=== PATIENT | male | born 1970 | race African-American/Black ===

== ENCOUNTER 2019-11-02 22:27 | Emergency (ER) | payer MEDICARE, OTHER ==
[~2019-11-02] VITALS: Ht 177.8 cm; Wt 82.3 kg
[~2019-11-02 22:27] MED LIST: LEVO50 PO; MULT-1239 PO; NALT50TA PO; OLAN10TA22 PO
[2019-11-02 23:21] LABS: BASOPHILS % (AUTO) 0.9 % (0.0-2.0); EOSINOPHILS % (AUTO) 3.7 % (1.0-6.0); HEMATOCRIT 34.6 % (41-53); HEMOGLOBIN 11.1 g/dL (13.5-17.5); LYMPHOCYTES # (AUTO) 1.3 K/uL (1.0-4.8); MEAN CORPUSCULAR VOLUME 78 fL (80-100); MONOCYTES # (AUTO) 0.3 K/uL (0.1-1.0); MONOCYTES % (AUTO) 8.7 % (2.0-9.0); NEUTROPHILS # (AUTO) 2.1 K/uL (1.8-7.7); NEUTROPHILS % (AUTO) 53.7 % (40.0-70.0); PLATELET COUNT (AUTO) 184 K/uL (150-450); RED BLOOD CELL COUNT(AUTO) 4.44 MIL/uL (4.50-5.90); RED CELL DISTRIBUTION WIDTH 15.6 % (11.5-14.5)
[2019-11-02 23:30] LABS: ANION GAP 2 mmol/L (8-16); CALCIUM, TOTAL 9.1 mg/dL (8.8-10.5); CARBON DIOXIDE 33 mmol/L (22-29); CHLORIDE 100 mmol/L (98-107); CREATININE 1.66 mg/dL (0.60-1.30); GLOMERULAR FILTR. RATE CALC 53 mL/min (>60); GLUCOSE,RANDOM 82 mg/dL (70-110); POTASSIUM 4.2 mmol/L (3.5-5.1); SODIUM SERUM 135 mmol/L (136-145); UREA NITROGEN, BLOOD 20 mg/dL (7-18)
[2019-11-02 23:36] LABS: ALANINE AMINOTRANSFERASE 24 U/L (12-78); ALBUMIN 3.4 g/dL (3.4-5.0); ALKALINE PHOSPHATASE 47 U/L (46-116); ASPARTATE AMINOTRANSFERASE 37 U/L (15-37); BILIRUBIN,TOTAL 0.4 mg/dL (0.1-1.0); TOTAL PROTEIN, SERUM 7.4 g/dL (6.4-8.2)
[2019-11-03 00:50] VITALS: BP 114/70
== END 2019-11-03 02:40 | disposition home or self-care (01) ==
LOC: EMS 22:27
DX: F20.0 Paranoid schizophrenia (principal); D64.9 Anemia, unspecified; N28.9 Disorder of kidney and ureter, unspecified; F32.9 Major depressive disorder, single episode, unspecified
CPT/HCPCS: 36415; 80053; 85025; 99285; G0480

== ENCOUNTER 2019-11-06 12:31 | Inpatient (IN) | payer MEDICARE, MEDICAID ==
[~2019-11-06] VITALS: Ht 175.3 cm; Wt 79.4 kg
[2019-11-06 13:02] LABS: BASOPHILS % (AUTO) 0.9 % (0.0-2.0); EOSINOPHILS % (AUTO) 3.1 % (1.0-6.0); HEMATOCRIT 36.4 % (41-53); HEMOGLOBIN 12.2 g/dL (13.5-17.5); LYMPHOCYTES # (AUTO) 1.2 K/uL (1.0-4.8); LYMPHOCYTES % (AUTO) 31.1 % (22.0-44.0); MEAN CORPUSCULAR HEMOGLOBIN 25.9 pg (26.0-34.0); MEAN CORPUSCULAR HGB CONC 33.5 G/dL (31.0-37.0); MEAN CORPUSCULAR VOLUME 77 fL (80-100); MONOCYTES # (AUTO) 0.4 K/uL (0.1-1.0); MONOCYTES % (AUTO) 9.9 % (2.0-9.0); PLATELET COUNT (AUTO) 226 K/uL (150-450); RED CELL DISTRIBUTION WIDTH 15.4 % (11.5-14.5)
[2019-11-06 13:13] LABS: ANION GAP 3 mmol/L (8-16); CALCIUM, TOTAL 9.3 mg/dL (8.8-10.5); CARBON DIOXIDE 33 mmol/L (22-29); CHLORIDE 97 mmol/L (98-107); CREATININE 1.76 mg/dL (0.60-1.30); GLOMERULAR FILTR. RATE CALC 50 mL/min (>60); GLUCOSE,RANDOM 112 mg/dL (70-110); POTASSIUM 3.7 mmol/L (3.5-5.1); SODIUM SERUM 133 mmol/L (136-145); UREA NITROGEN, BLOOD 24 mg/dL (7-18)
[2019-11-06 13:17] LABS: ALANINE AMINOTRANSFERASE 27 U/L (12-78); ALKALINE PHOSPHATASE 48 U/L (46-116); ASPARTATE AMINOTRANSFERASE 50 U/L (15-37); BILIRUBIN,TOTAL 0.8 mg/dL (0.1-1.0); TOTAL PROTEIN, SERUM 8.3 g/dL (6.4-8.2)
[2019-11-06 14:57] LABS: AMPHET/METH SCREEN,URINE NEGATIVE (NEGATIVE); BARBITURATE SCREEN, URINE NEGATIVE (NEGATIVE); BENZODIAZEPINES SCREEN,URINE NEGATIVE (NEGATIVE); CANNABINOID SCREEN,URINE NEGATIVE (NEGATIVE); COCAINE SCREEN,URINE NEGATIVE (NEGATIVE); METHADONE SCREEN, URINE NEGATIVE (NEGATIVE); OPIATE SCREEN,URINE NEGATIVE (NEGATIVE)
[2019-11-06 15:00] LABS: PHENCYCLIDINE SCREEN,URINE NEGATIVE (NEGATIVE)
[2019-11-06] MEDS ORDERED: ACETAMINOPHEN 325 MG TABLET PO PRN (16:15)
[2019-11-06] MEDS ORDERED: PROMETHAZINE HCL 25 MG TABLET PO PRN (16:15)
[2019-11-06] MEDS ORDERED: GuaiFENesin/D-METHORPHAN [SUGAR-FREE] 200-20MG/10 ML SYRUP UDCUP PO PRN (16:15)
[2019-11-06] MEDS ORDERED: LOPERAMIDE HCL 2 MG CAPSULE PO PRN (16:15)
[2019-11-06] MEDS ORDERED: MAG HYDROX/AL HYDROX/SIMETH ES 30 ML SUSPENSION UDCUP PO PRN (16:15)
[2019-11-06] MEDS ORDERED: LORazepam 2 MG TABLET PO PRN (16:15)
[2019-11-06] MEDS ORDERED: MAGNESIUM HYDROXIDE SUSPENSION 30 ML UDCUP PO PRN (16:15)
[2019-11-06] MEDS ORDERED: ZOLPIDEM TARTRATE 10 MG TABLET PO PRN (16:15)
[2019-11-06] MEDS ORDERED: HydrOXYzine PAMOATE 50 MG CAPSULE PO PRN (16:15)
[2019-11-06] MEDS ORDERED: OLANZapine 5 MG RAPDIS TABLET PO PRN (16:15)
[2019-11-06] MEDS: THIAMINE 100 MG TABLET PO SCH (18:11)
[2019-11-06 22:24] VITALS: BP 126/72
[2019-11-07 06:43] VITALS: BP 113/68
[2019-11-07] MEDS: FOLIC ACID 1 MG TABLET PO SCH (08:49)
[2019-11-07] MEDS: FLUoxetine HCL 20 MG CAPSULE PO SCH (08:49)
[2019-11-07] MEDS: MULTIVITAMINS WITH MINERALS, THERAPEUTIC TABLET PO SCH (08:49)
[2019-11-07] MEDS: OLANZapine 5 MG RAPDIS TABLET PO SCH (08:50)
[2019-11-07] MEDS: THIAMINE 100 MG TABLET PO SCH ×2 (08:50→18:44)
[2019-11-07] MEDS: NALTREXONE HCL 50 MG TABLET PO SCH (09:19)
[2019-11-07 11:52] VITALS: BP 117/76
[2019-11-07 17:21] VITALS: BP 109/61
[2019-11-08 03:08] VITALS: BP 96/64
[2019-11-08 08:19] VITALS: BP 104/62
[2019-11-08] MEDS: THIAMINE 100 MG TABLET PO SCH ×2 (08:22→16:33)
[2019-11-08] MEDS: FOLIC ACID 1 MG TABLET PO SCH (08:22)
[2019-11-08] MEDS: NALTREXONE HCL 50 MG TABLET PO SCH (08:22)
[2019-11-08] MEDS: MULTIVITAMINS WITH MINERALS, THERAPEUTIC TABLET PO SCH (08:22)
[2019-11-08] MEDS: OLANZapine 5 MG RAPDIS TABLET PO SCH (08:25)
[2019-11-08] MEDS: FLUoxetine HCL 20 MG CAPSULE PO SCH (08:25)
[2019-11-08 16:24] VITALS: BP 106/64
[2019-11-08] MEDS: MIRTAZAPINE 15 MG TABLET PO SCH (20:34)
[2019-11-09 04:13] VITALS: BP 101/68
[2019-11-09 08:27] VITALS: BP 123/71
[2019-11-09 08:28] LABS: FREE T4 (FREE THYROXINE) 0.9 ng/dL (0.76-1.46); THYROID STIMULATING HORMONE 5.87 uIU/mL (0.36-3.74)
[2019-11-09] MEDS: THIAMINE 100 MG TABLET PO SCH ×2 (08:42→16:39)
[2019-11-09] MEDS: FLUoxetine HCL 20 MG CAPSULE PO SCH (08:42)
[2019-11-09] MEDS: FOLIC ACID 1 MG TABLET PO SCH (08:42)
[2019-11-09] MEDS: NALTREXONE HCL 50 MG TABLET PO SCH (08:42)
[2019-11-09] MEDS: OLANZapine 10 MG RAPDIS TABLET PO SCH (08:42)
[2019-11-09] MEDS: MULTIVITAMINS WITH MINERALS, THERAPEUTIC TABLET PO SCH (08:42)
[2019-11-09] MEDS ORDERED: MIRT-89 PO (15:06)
[2019-11-09] MEDS ORDERED: OLAN10TA22 PO (15:06)
[2019-11-09] MEDS ORDERED: FLUO-191 PO (15:06)
[2019-11-09] MEDS ORDERED: NALT50TA PO (15:06)
[2019-11-09 16:19] VITALS: BP 105/66
[2019-11-09] MEDS: MIRTAZAPINE 15 MG TABLET PO SCH (20:42)
[2019-11-10 04:28] VITALS: BP 111/68
[2019-11-10 07:57] LABS: FREE T4 (FREE THYROXINE) 0.88 ng/dL (0.76-1.46); THYROID STIMULATING HORMONE 6.32 uIU/mL (0.36-3.74)
[2019-11-10] MEDS: THIAMINE 100 MG TABLET PO SCH ×2 (08:35→16:29)
[2019-11-10] MEDS: FLUoxetine HCL 20 MG CAPSULE PO SCH (08:35)
[2019-11-10 08:36] VITALS: BP 102/66
[2019-11-10] MEDS: NALTREXONE HCL 50 MG TABLET PO SCH (08:36)
[2019-11-10] MEDS: MULTIVITAMINS WITH MINERALS, THERAPEUTIC TABLET PO SCH (08:36)
[2019-11-10] MEDS: FOLIC ACID 1 MG TABLET PO SCH (08:36)
[2019-11-10] MEDS: OLANZapine 10 MG RAPDIS TABLET PO SCH (08:36)
[2019-11-10 16:34] VITALS: BP 101/60
== END 2019-11-10 17:35 | disposition home or self-care (01) | DRG 885 ==
LOC: EMS 12:32 → B2S 16:07 → UNDOADMIN 17:51 → B2S 20:15 → B2X 20:15
PROVIDERS: ADMIT Psychiatry & Neurology Psychiatry; ATTEND Psychiatry & Neurology Psychiatry
DX: F20.0 Paranoid schizophrenia (principal); F17.210 Nicotine dependence, cigarettes, uncomplicated; D49.7 Neoplasm of unspecified behavior of endocrine glands and other parts of nervous system; E03.9 Hypothyroidism, unspecified; N28.9 Disorder of kidney and ureter, unspecified; Z59.0 Homelessness; Z79.899 Other long term (current) drug therapy; Z91.14 Patient's other noncompliance with medication regimen; Z91.19 Patient's noncompliance with other medical treatment and regimen
CPT/HCPCS: 84439; 84443; 84481; G0480

== ENCOUNTER 2020-05-11 16:05 | Inpatient (IN) | payer OTHER, MEDICAID ==
[~2020-05-11] VITALS: Ht 177.8 cm; Wt 77.6 kg
[~2020-05-11 16:05] MED LIST changes: +FLUO-191 PO; -LEVO50 PO; +MIRT-89 PO; -MULT-1239 PO
[2020-05-11] MEDS ORDERED: DOCU-275 PO (18:17)
[2020-05-11] MEDS ORDERED: LEVO50 PO (18:18)
[2020-05-11] MEDS ORDERED: HALOPERIDOL 5 MG TABLET PO PRN (18:45)
[2020-05-11] MEDS ORDERED: LORazepam 2 MG TABLET PO PRN (18:45)
[2020-05-11] MEDS ORDERED: ZOLPIDEM TARTRATE 10 MG TABLET PO PRN (18:45)
[2020-05-11 19:15] VITALS: BP 103/64
[2020-05-11] MEDS: MIRTAZAPINE 15 MG TABLET PO SCH (20:59)
[2020-05-11] MEDS: OLANZapine 10 MG TABLET PO SCH (21:00)
[2020-05-11 21:10] LABS: GLUCOMETER DEV NAME(LOC) 3E.I 2; GLUCOSE,POINT OF CARE 78 MG/DL (70-110)
[2020-05-11] MEDS ORDERED: IBUPROFEN 400 MG TABLET PO PRN (21:15)
[2020-05-12 06:38] LABS: GLUCOMETER DEV NAME(LOC) 3E.I 2; GLUCOSE,POINT OF CARE 70 MG/DL (70-110)
[2020-05-12] MEDS: LEVOTHYROXINE SODIUM 50 MCG TABLET PO SCH (06:57)
[2020-05-12] MEDS ORDERED: GuaiFENesin/D-METHORPHAN [SUGAR-FREE] 200-20MG/10 ML SYRUP UDCUP PO PRN (08:30)
[2020-05-12] MEDS ORDERED: MAGNESIUM HYDROXIDE SUSPENSION 30 ML UDCUP PO PRN (08:30)
[2020-05-12] MEDS ORDERED: ACETAMINOPHEN 325 MG TABLET PO PRN (08:30)
[2020-05-12] MEDS ORDERED: NICOTINE 14 MG/24 HOUR PATCH TD PRN (08:30)
[2020-05-12] MEDS ORDERED: ONDANSETRON HCL 4 MG TABLET PO PRN (08:30)
[2020-05-12] MEDS ORDERED: ALBUTEROL SULFATE HFA 90 MCG/PUFF 8 GM INHALER IH PRN (08:30)
[2020-05-12] MEDS ORDERED: DOCUSATE SODIUM 100 MG CAPSULE PO PRN (08:30)
[2020-05-12] MEDS ORDERED: PETROLATUM,WHITE 28 GM JELLY TP PRN (08:30)
[2020-05-12] MEDS ORDERED: LOPERAMIDE HCL 2 MG CAPSULE PO PRN (08:30)
[2020-05-12] MEDS ORDERED: MAG HYDROX/AL HYDROX/SIMETH ES 30 ML SUSPENSION UDCUP PO PRN (08:30)
[2020-05-12] MEDS ORDERED: CloNIDine HCL 0.1 MG TABLET PO PRN (08:30)
[2020-05-12 13:21] LABS: GLUCOMETER DEV NAME(LOC) 3E.I 2; GLUCOSE,POINT OF CARE 59 MG/DL (70-110)
[2020-05-12 14:00] LABS: GLUCOMETER DEV NAME(LOC) 3E.I 2; GLUCOSE,POINT OF CARE 70 MG/DL (70-110)
[2020-05-12 15:05] VITALS: BP 99/63
[2020-05-12] MEDS: IBUPROFEN 400 MG TABLET PO PRN (15:07)
[2020-05-12 16:36] VITALS: BP 89/58
[2020-05-12 16:36] LABS: GLUCOMETER DEV NAME(LOC) 3E.I 2; GLUCOSE,POINT OF CARE 72 MG/DL (70-110)
[2020-05-12 20:25] LABS: GLUCOMETER DEV NAME(LOC) 3E.I 2; GLUCOSE,POINT OF CARE 106 MG/DL (70-110)
[2020-05-12] MEDS: OLANZapine 10 MG TABLET PO SCH (20:51)
[2020-05-12] MEDS: MIRTAZAPINE 15 MG TABLET PO SCH (20:51)
[2020-05-13 06:48] LABS: GLUCOMETER DEV NAME(LOC) 3E.I 2; GLUCOSE,POINT OF CARE 68 MG/DL (70-110)
[2020-05-13 06:57] LABS: BASOPHILS % (AUTO) 1.1 % (0.0-2.0); EOSINOPHILS % (AUTO) 4.6 % (1.0-6.0); HEMATOCRIT 30.2 % (41-53); HEMOGLOBIN 9.9 g/dL (13.5-17.5); LYMPHOCYTES # (AUTO) 1.4 K/uL (1.0-4.8); LYMPHOCYTES % (AUTO) 48.7 % (22.0-44.0); MEAN CORPUSCULAR HGB CONC 32.8 G/dL (31.0-37.0); MEAN CORPUSCULAR VOLUME 82 fL (80-100); MONOCYTES # (AUTO) 0.3 K/uL (0.1-1.0); MONOCYTES % (AUTO) 10.2 % (2.0-9.0); NEUTROPHILS % (AUTO) 35.4 % (40.0-70.0); PLATELET COUNT (AUTO) 135 K/uL (150-450); RED BLOOD CELL COUNT(AUTO) 3.67 MIL/uL (4.50-5.90); RED CELL DISTRIBUTION WIDTH 14.9 % (11.5-14.5)
[2020-05-13] MEDS: LEVOTHYROXINE SODIUM 50 MCG TABLET PO SCH (06:58)
[2020-05-13] MEDS ORDERED: LEVOTHYROXINE SODIUM 50 MCG TABLET PO SCH (07:00)
[2020-05-13 07:14] LABS: GLUCOMETER DEV NAME(LOC) 3E.I 2; GLUCOSE,POINT OF CARE 118 MG/DL (70-110)
[2020-05-13 08:04] LABS: ALBUMIN 2.9 g/dL (3.4-5.0); BILIRUBIN,TOTAL 0.3 mg/dL (0.1-1.0); CALCIUM, TOTAL 8.6 mg/dL (8.8-10.5); CREATININE 1.57 mg/dL (0.60-1.30); FREE T4 (FREE THYROXINE) 0.88 ng/dL (0.76-1.46); POTASSIUM 4.9 mmol/L (3.5-5.1); THYROID STIMULATING HORMONE 5.15 uIU/mL (0.36-3.74)
[2020-05-13 08:39] VITALS: BP 94/54
[2020-05-13 11:50] LABS: GLUCOMETER DEV NAME(LOC) 3E.I 2; GLUCOSE,POINT OF CARE 90 MG/DL (70-110)
[2020-05-13 16:00] VITALS: BP 102/57
[2020-05-13] MEDS: IBUPROFEN 400 MG TABLET PO PRN (16:00)
[2020-05-13] MEDS: OLANZapine 10 MG TABLET PO SCH (20:06)
[2020-05-13] MEDS: MIRTAZAPINE 15 MG TABLET PO SCH (20:06)
[2020-05-13 20:59] LABS: GLUCOMETER DEV NAME(LOC) 3E.I 2; GLUCOSE,POINT OF CARE 71 MG/DL (70-110)
[2020-05-14] MEDS: LEVOTHYROXINE SODIUM 50 MCG TABLET PO SCH (06:36)
[2020-05-14 06:40] LABS: GLUCOMETER DEV NAME(LOC) 3E.I 2; GLUCOSE,POINT OF CARE 79 MG/DL (70-110)
[2020-05-14 08:35] VITALS: BP 96/65
[2020-05-14 12:45] LABS: GLUCOMETER DEV NAME(LOC) 3E.I 2; GLUCOSE,POINT OF CARE 95 MG/DL (70-110)
[2020-05-14 16:15] VITALS: BP 108/60
[2020-05-14 17:04] LABS: GLUCOMETER DEV NAME(LOC) 3E.I 2; GLUCOSE,POINT OF CARE 106 MG/DL (70-110)
[2020-05-14] MEDS: OLANZapine 10 MG TABLET PO SCH (20:24)
[2020-05-14] MEDS: MIRTAZAPINE 15 MG TABLET PO SCH (20:24)
[2020-05-14 20:35] LABS: GLUCOMETER DEV NAME(LOC) 3E.I 2; GLUCOSE,POINT OF CARE 95 MG/DL (70-110)
[2020-05-15] MEDS: LEVOTHYROXINE SODIUM 50 MCG TABLET PO SCH (06:44)
[2020-05-15 06:45] VITALS: BP 92/62
[2020-05-15] MEDS: IBUPROFEN 400 MG TABLET PO PRN (06:57)
[2020-05-15 07:39] LABS: GLUCOMETER DEV NAME(LOC) 3E.I 2; GLUCOSE,POINT OF CARE 60 MG/DL (70-110)
[2020-05-15 07:39] LABS: GLUCOMETER DEV NAME(LOC) 3E.I 2; GLUCOSE,POINT OF CARE 84 MG/DL (70-110)
[2020-05-15 08:10] VITALS: BP 107/66
[2020-05-15 11:04] LABS: COVID AG,FIA SOURCE NASOPHARYNGEAL
[2020-05-15] MEDS ORDERED: MIRT-89 PO (11:04)
[2020-05-15] MEDS ORDERED: OLAN10TA3 PO (11:04)
[2020-05-15 16:10] VITALS: BP 98/79
[2020-05-15 16:34] LABS: GLUCOMETER DEV NAME(LOC) 3E.I 2; GLUCOSE,POINT OF CARE 80 MG/DL (70-110)
== END 2020-05-15 17:55 | disposition home or self-care (01) | DRG 885 ==
LOC: 3EI 19:15
DX: F25.1 Schizoaffective disorder, depressive type (principal); N17.9 Acute kidney failure, unspecified; R45.851 Suicidal ideations; F41.9 Anxiety disorder, unspecified; E03.9 Hypothyroidism, unspecified; D64.9 Anemia, unspecified; D72.819 Decreased white blood cell count, unspecified; E16.2 Hypoglycemia, unspecified; Z20.822 Contact with and (suspected) exposure to COVID-19
CPT/HCPCS: 84439; 84443; 87426

== ENCOUNTER 2021-04-18 13:04 | Inpatient (IN) | payer MEDICARE, MEDICAID ==
[~2021-04-18] VITALS: Ht 180.3 cm; Wt 181.6 kg
[~2021-04-18 13:04] MED LIST changes: -FLUO-191 PO; +LEVO50 PO; -NALT50TA PO; -OLAN10TA22 PO; +OLAN10TA74 PO
[2021-04-18] MEDS ORDERED: DiphenhydrAMINE HCL 50 MG/ML VIAL IM ONE (13:45)
[2021-04-18] MEDS ORDERED: HALOPERIDOL LACTATE 5 MG/ML VIAL IM ONE (13:45)
[2021-04-18] MEDS ORDERED: SODIUM CHLORIDE 0.9% 1,000 ML IV ONE ×2 (14:15→19:15)
[2021-04-18 16:25] LABS: BASOPHILS % (AUTO) 0.3 % (0.0-2.0); EOSINOPHILS % (AUTO) 0 % (1.0-6.0); HEMATOCRIT 37.8 % (41-53); HEMOGLOBIN 12.6 g/dL (13.5-17.5); LYMPHOCYTES # (AUTO) 0.8 K/uL (1.0-4.8); LYMPHOCYTES % (AUTO) 11.7 % (22.0-44.0); MEAN CORPUSCULAR HEMOGLOBIN 26.2 pg (26.0-34.0); MEAN CORPUSCULAR HGB CONC 33.4 G/dL (31.0-37.0); MEAN CORPUSCULAR VOLUME 78 fL (80-100); MONOCYTES % (AUTO) 16.2 % (2.0-9.0); NEUTROPHILS # (AUTO) 4.6 K/uL (1.8-7.7); NEUTROPHILS % (AUTO) 71.8 % (40.0-70.0); PLATELET COUNT (AUTO) 167 K/uL (150-450); RED BLOOD CELL COUNT(AUTO) 4.82 MIL/uL (4.50-5.90); RED CELL DISTRIBUTION WIDTH 16.8 % (11.5-14.5)
[2021-04-18 16:36] LABS: INR 1.1 (0.9-1.1)
[2021-04-18 17:10] LABS: COVID AG,FIA SOURCE NASOPHARYNGEAL
[2021-04-18 17:16] LABS: AMMONIA 19 umol/L (11-32)
[2021-04-18 18:05] LABS: ALANINE AMINOTRANSFERASE 66 U/L (12-78); ALBUMIN 3.5 g/dL (3.4-5.0); ALKALINE PHOSPHATASE 62 U/L (46-116); ANION GAP 10 mmol/L (8-16); ASPARTATE AMINOTRANSFERASE 184 U/L (15-37); BILIRUBIN,TOTAL 0.7 mg/dL (0.1-1.0); CALCIUM, TOTAL 8.8 mg/dL (8.8-10.5); CARBON DIOXIDE 24 mmol/L (22-29); CHLORIDE 98 mmol/L (98-107); CREATININE 4.52 mg/dL (0.60-1.30); FREE T4 (FREE THYROXINE) 0.73 ng/dL (0.76-1.46); GLOMERULAR FILTR. RATE CALC 11 mL/min (>60); GLUCOSE,RANDOM 100 mg/dL (70-110); SODIUM SERUM 132 mmol/L (136-145); THYROID STIMULATING HORMONE 5.03 uIU/mL (0.36-3.74); UREA NITROGEN, BLOOD 34 mg/dL (7-18)
[2021-04-18 18:13] LABS: CREATINE KINASE, TOTAL ONLY 4593 U/L (39-308); POTASSIUM 6.2 mmol/L (3.5-5.1)
[2021-04-18] MEDS ORDERED: DEXTROSE 50%-WATER 25 GM/50 ML SYRINGE IVP ONE (18:15)
[2021-04-18] MEDS ORDERED: INSULIN REGULAR, HUMAN 100 UNITS/ML IVP ONE (18:15)
[2021-04-18] MEDS ORDERED: CALCIUM GLUCONATE 1,000 MG in DEXTROSE 5%-WATER 50 ML IV ONE (18:15)
[2021-04-18] MEDS ORDERED: LORazepam 2 MG/ML VIAL IM ONE (18:15)
[2021-04-18] MEDS ORDERED: ALBUTEROL SULFATE 5 MG/ML 20 ML NEB SOLN [BULK] NEB ONE (18:15)
[2021-04-18] MEDS ORDERED: ZOLPIDEM TARTRATE 5 MG TABLET PO PRN (20:15)
[2021-04-18] MEDS ORDERED: HYDROCODONE/ACETAMINOPHEN 5-325 MG TABLET PO PRN (20:15)
[2021-04-18] MEDS ORDERED: MORPHINE SULFATE 2 MG/ML SYRINGE IVP PRN (20:15)
[2021-04-18] MEDS ORDERED: ONDANSETRON HCL 4 MG/2 ML VIAL IVP PRN (20:15)
[2021-04-18] MEDS ORDERED: ACETAMINOPHEN 325 MG TABLET PO PRN (20:15)
[2021-04-18] MEDS ORDERED: BISACODYL 10 MG RECTAL RECTAL SUPPOSITORY PR PRN (20:15)
[2021-04-18] MEDS ORDERED: MAGNESIUM HYDROXIDE SUSPENSION 30 ML UDCUP PO PRN (20:15)
[2021-04-18 20:49] LABS: APPEARANCE,URINE CLEAR (CLEAR); BILIRUBIN,URINE NEGATIVE (NEGATIVE); GLUCOSE, URINE (UA) NEGATIVE (NEGATIVE); KETONES,URINE NEGATIVE (NEGATIVE); LEUKOCYTE ESTERASE ,URINE NEGATIVE (NEGATIVE); NITRATE,URINE NEGATIVE (NEGATIVE); OCCULT BLOOD,URINE LARGE (NEGATIVE); PROTEIN,URINE SEE CONFIRM (NEGATIVE); UROBILINOGEN,URINE 0.2 mg/dL (<=1.0)
[2021-04-18 21:20] LABS: CALCIUM, TOTAL 8.4 mg/dL (8.8-10.5); CREATININE 3.72 mg/dL (0.60-1.30); POTASSIUM 4.5 mmol/L (3.5-5.1)
[2021-04-18] MEDS: DOCUSATE SODIUM 100 MG CAPSULE PO SCH (21:24)
[2021-04-18] MEDS: SODIUM CHLORIDE 0.9% 1,000 ML IV SCH (21:24)
[2021-04-18] MEDS ORDERED: ACETAMINOPHEN 1000 MG/ISO-OSM 100 ML IV ONE (21:30)
[2021-04-18] MEDS ORDERED: AZITHROMYCIN 500 MG/NS 250 ML IV ONE (21:30)
[2021-04-18] MEDS ORDERED: VANCOMYCIN HCL 1 GM/D5% WATER 200 ML IV ONE (21:30)
[2021-04-18] MEDS ORDERED: PIPERACILLIN/TAZO 3.375 GM/D5W 50 ML IV ONE (21:30)
[2021-04-18 21:33] LABS: SULFOSALICYLIC ACID,URINE 1+ (Negative)
[2021-04-18 21:34] LABS: BACTERIA,URINE Moderate /HPF (None Seen); RBC,URINE 0-2 /HPF (0-2)
[2021-04-18 21:49] LABS: AMPHET/METH SCREEN,URINE NEGATIVE (NEGATIVE); BARBITURATE SCREEN, URINE NEGATIVE (NEGATIVE); BENZODIAZEPINES SCREEN,URINE NEGATIVE (NEGATIVE); CANNABINOID SCREEN,URINE NEGATIVE (NEGATIVE); COCAINE SCREEN,URINE NEGATIVE (NEGATIVE); METHADONE SCREEN, URINE NEGATIVE (NEGATIVE); OPIATE SCREEN,URINE NEGATIVE (NEGATIVE)
[2021-04-18 21:51] LABS: PHENCYCLIDINE SCREEN,URINE NEGATIVE (NEGATIVE)
[2021-04-19] VITALS (8 sets, daily range): BP systolic 91–132; BP diastolic 48–77
[2021-04-19] MEDS: HEPARIN SODIUM,PORCINE 5,000 UNITS/ML VIAL SQ SCH ×4 (00:14→23:43)
[2021-04-19 00:26] LABS: LACTIC ACID 3.1 mmol/L (0.4-2.0)
[2021-04-19] MEDS: DOCUSATE SODIUM 100 MG CAPSULE PO SCH ×2 (09:00→21:00)
[2021-04-19] MEDS: PANTOPRAZOLE SODIUM 40 MG DR TABLET PO SCH (09:00)
[2021-04-19] MEDS ORDERED: SODIUM CHLORIDE 0.9% 1,000 ML IV ONE (11:00)
[2021-04-19] MEDS ORDERED: *CLINICAL-LEVOFLOXACIN ORAL DOSING CLINICAL ONE (11:00)
[2021-04-19] MEDS: SODIUM CHLORIDE 0.9% 1,000 ML IV SCH (14:35)
[2021-04-19] MEDS: LEVOFLOXACIN 750 MG/D5% WATER 150 ML IV SCH (17:37)
[2021-04-19 18:10] LABS: APPEARANCE,URINE CLEAR (CLEAR); BILIRUBIN,URINE NEGATIVE (NEGATIVE); GLUCOSE, URINE (UA) NEGATIVE (NEGATIVE); KETONES,URINE NEGATIVE (NEGATIVE); LEUKOCYTE ESTERASE ,URINE NEGATIVE (NEGATIVE); NITRATE,URINE NEGATIVE (NEGATIVE); OCCULT BLOOD,URINE LARGE (NEGATIVE); PH,URINE 7.5 (5.0-8.0); PROTEIN,URINE POS 1+ (NEGATIVE)
[2021-04-19 18:14] LABS: CREATININE,URINE RANDOM 69.9 mg/dL (30.0-125.0); PROTEIN,URINE RANDOM 79 mg/dL (0-11.9); SODIUM,URINE RANDOM 132 mmol/l (20-110); UREA NITROGEN,URINE RANDOM 419 mg/dL (350-1000)
[2021-04-19 18:36] LABS: BACTERIA,URINE Rare /HPF (None Seen); SQUAMOUS EPITHELIAL CELL,UR None Seen /LPF (None Seen); WBC,URINE 0-2 /HPF (0-5)
[2021-04-20] MEDS: SODIUM CHLORIDE 0.9% 1,000 ML IV SCH ×2 (00:03→12:34)
[2021-04-20 03:45] VITALS: BP 110/60
[2021-04-20] MEDS: HEPARIN SODIUM,PORCINE 5,000 UNITS/ML VIAL SQ SCH ×2 (08:00→16:00)
[2021-04-20] MEDS: PANTOPRAZOLE SODIUM 40 MG DR TABLET PO SCH (08:54)
[2021-04-20] MEDS: DOCUSATE SODIUM 100 MG CAPSULE PO SCH ×2 (08:54→21:00)
[2021-04-20 16:19] VITALS: BP 93/57
[2021-04-20] MEDS: LEVOFLOXACIN 750 MG/D5% WATER 150 ML IV SCH (18:00)
[2021-04-20 19:57] VITALS: BP 92/55
[2021-04-20 23:35] VITALS: BP 136/69
[2021-04-21] MEDS: SODIUM CHLORIDE 0.9% 1,000 ML IV SCH ×2 (01:12→14:26)
[2021-04-21] MEDS: HEPARIN SODIUM,PORCINE 5,000 UNITS/ML VIAL SQ SCH ×3 (08:00→16:00)
[2021-04-21] MEDS: DOCUSATE SODIUM 100 MG CAPSULE PO SCH ×2 (09:00→21:00)
[2021-04-21] MEDS: PANTOPRAZOLE SODIUM 40 MG DR TABLET PO SCH (09:00)
[2021-04-21 11:23] VITALS: BP 103/60
[2021-04-21 20:00] VITALS: BP 119/61
[2021-04-22] MEDS: SODIUM CHLORIDE 0.9% 1,000 ML IV SCH ×2 (02:03→15:47)
[2021-04-22 07:30] VITALS: BP 90/55
[2021-04-22] MEDS: HEPARIN SODIUM,PORCINE 5,000 UNITS/ML VIAL SQ SCH ×3 (08:00→15:47)
[2021-04-22] MEDS: DOCUSATE SODIUM 100 MG CAPSULE PO SCH ×2 (08:51→20:19)
[2021-04-22] MEDS: PANTOPRAZOLE SODIUM 40 MG DR TABLET PO SCH (08:51)
[2021-04-22 09:11] LABS: HEMATOCRIT 32.2 % (41-53); HEMOGLOBIN 10.4 g/dL (13.5-17.5); MEAN CORPUSCULAR HEMOGLOBIN 25.4 pg (26.0-34.0); MEAN CORPUSCULAR HGB CONC 32.4 G/dL (31.0-37.0); MEAN CORPUSCULAR VOLUME 78 fL (80-100); PLATELET COUNT (AUTO) 144 K/uL (150-450); RED CELL DISTRIBUTION WIDTH 16.4 % (11.5-14.5)
[2021-04-22 09:40] LABS: CREATININE 1.78 mg/dL (0.60-1.30); MAGNESIUM 1.6 mg/dL (1.80-2.40); PHOSPHORUS 2.4 mg/dL (2.5-4.9); POTASSIUM 3.8 mmol/L (3.5-5.1)
[2021-04-22 11:21] LABS: PATHOLOGY REVIEW, DIFF YES
[2021-04-22 11:24] LABS: BAND NEUTROPHILS % (MANUAL) 4 % (0-5); EOSINOPHILS % (MANUAL) 1 % (1-6); LYMPHOCYTES % (MANUAL) 38 % (22-44); MONOCYTES % (MANUAL) 16 % (2-9); SEGMENTED NEUTROPHILS % 41 % (40-70)
[2021-04-22 11:46] VITALS: BP 96/55
[2021-04-22] MEDS ORDERED: LEVOFLOXACIN 750 MG/D5% WATER 150 ML IV SCH (18:00)
[2021-04-22 19:52] VITALS: BP 107/61
[2021-04-23] MEDS: HEPARIN SODIUM,PORCINE 5,000 UNITS/ML VIAL SQ SCH ×2 (08:00)
[2021-04-23] MEDS: DOCUSATE SODIUM 100 MG CAPSULE PO SCH (09:00)
[2021-04-23] MEDS: PANTOPRAZOLE SODIUM 40 MG DR TABLET PO SCH (09:16)
== END 2021-04-23 11:30 | disposition left against medical advice (07) | DRG 91 ==
LOC: EMS 13:15 → EDBD 21:51 → 5N 21:51 → MERGE 21:51 → 6N 04-22 18:20
PROVIDERS: ADMIT Internal Medicine; ATTEND Internal Medicine
DX: G92.8 Other toxic encephalopathy (principal); U07.1 COVID-19; N17.9 Acute kidney failure, unspecified; M62.82 Rhabdomyolysis; R78.81 Bacteremia; Z16.24 Resistance to multiple antibiotics; N39.0 Urinary tract infection, site not specified; N18.9 Chronic kidney disease, unspecified; B96.20 Unspecified Escherichia coli [E. coli] as the cause of diseases classified elsewhere; Z53.29 Procedure and treatment not carried out because of patient's decision for other reasons; B95.7 Other staphylococcus as the cause of diseases classified elsewhere; I95.9 Hypotension, unspecified; F10.929 Alcohol use, unspecified with intoxication, unspecified; Y90.0 Blood alcohol level of less than 20 mg/100 ml; Z53.20 Procedure and treatment not carried out because of patient's decision for unspecified reasons; D50.9 Iron deficiency anemia, unspecified; E87.5 Hyperkalemia; T68.XXXA Hypothermia, initial encounter; Z91.19 Patient's noncompliance with other medical treatment and regimen
CPT/HCPCS: 51702; 71045; 80048; 80053; 81001; 81002; 82140; 82550; 82570; 83605; 83735; 84100; 84156; 84300; 84439; 84443; 84484; 84540; 85025; 85610; 85730; 87040; 87070; 87077; 87086; 87205; 93005; 93306; 97110; 97116; 97163; 97530; 99291; G0480; J0131; J0456; J0610; J1200; J1630; J1644; J1815; J1956; J2060; J2270; J2405; J2543; J3370; J7030; J7060; 36415-L1; 36415-TC; J7611

== ENCOUNTER 2022-12-04 15:08 | Emergency (ER) | payer OTHER ==
[~2022-12-04] VITALS: Ht 177.8 cm; Wt 72.7 kg
[2022-12-04 15:20] VITALS: BP 92/44; PULSE 64; RESP 16; TEMP 98
== END 2022-12-04 16:32 | disposition home or self-care (01) ==
LOC: EMS 15:14
DX: M79.672 Pain in left foot (principal); M79.671 Pain in right foot; F25.9 Schizoaffective disorder, unspecified; E03.9 Hypothyroidism, unspecified; Z98.890 Other specified postprocedural states
CPT/HCPCS: 99281; Z7502

== ENCOUNTER 2023-08-02 00:50 | Emergency (ER) | payer MEDICARE, OTHER ==
[~2023-08-02] VITALS: Ht 177.8 cm; Wt 72.7 kg
[2023-08-02 00:54] VITALS: BP 104/67; PULSE 48; RESP 18; TEMP 98.4
[2023-08-02] MEDS ORDERED: METF-1211 PO (02:53)
[2023-08-02] MEDS ORDERED: GLIP5TAB16 PO (02:53)
[2023-08-02] MEDS: DIPHENOXYLATE/ATROP 2.5-0.025 MG TABLET PO ONE (03:04)
[2023-08-02] MEDS: ACETAMINOPHEN 500 MG TABLET PO ONE (03:04)
[2023-08-02] MEDS ORDERED: DIPH-1130 PO (03:26)
[2023-08-02] MEDS ORDERED: ACET-66 PO (03:26)
== END 2023-08-02 04:05 | disposition home or self-care (01) ==
LOC: EMS 00:51
DX: A05.9 Bacterial foodborne intoxication, unspecified (principal); Z98.890 Other specified postprocedural states
CPT/HCPCS: 99283

== ENCOUNTER → 2024-02-07 | Emergency (ER) | payer MEDICARE, OTHER ==
[~2024-02-07] VITALS: Ht 180.3 cm; Wt 81.8 kg
[~2024-02-07] MED LIST changes: +ACET-66 PO; +DIPH-1130 PO
[2024-02-07 14:24] VITALS: BP 95/65; PULSE 58; RESP 18; TEMP 98.2; O2SAT 100
== END | disposition still patient (30) ==
LOC: EMS 14:21
DX: Z53.21 Procedure and treatment not carried out due to patient leaving prior to being seen by health care provider (principal)

== ENCOUNTER 2024-02-22 15:24 | Emergency (ER) | payer MEDICARE, OTHER ==
[~2024-02-22] VITALS: Ht 172.7 cm; Wt 72.7 kg
[2024-02-22 15:41] VITALS: BP 100/68; PULSE 82; RESP 18; TEMP 98; O2SAT 98
[2024-02-22 15:54] LABS: COVID AG,FIA SOURCE NASAL SWAB
[2024-02-22 16:17] LABS: SARS-COV2 (COVID) ANTIGEN,FIA Negative (Negative)
[2024-02-22 16:19] LABS: INFLUENZA TYPE A NEGATIVE FOR TYPE A (NEGATIVE); INFLUENZA TYPE B NEGATIVE FOR TYPE B (NEGATIVE)
[2024-02-22] MEDS ORDERED: AMOX250C4 PO (21:28)
[2024-02-22] MEDS ORDERED: IPRA30SP2 NASAL (21:29)
== END 2024-02-22 21:36 | disposition home or self-care (01) ==
LOC: EMS 15:24
DX: J34.89 Other specified disorders of nose and nasal sinuses (principal); J06.9 Acute upper respiratory infection, unspecified; E03.9 Hypothyroidism, unspecified; Z20.822 Contact with and (suspected) exposure to COVID-19
CPT/HCPCS: 87804; 99283